=== PATIENT | male | born 1945 | race Caucasian/White ===

== ENCOUNTER 2019-07-25 12:24 | Emergency (ER) | payer OTHER ==
[~2019-07-25] VITALS: Ht 182.9 cm; Wt 63.5 kg
[2019-07-25 12:24] VITALS: BP_SYST 150
[2019-07-25] MEDS ORDERED: IPRATROPIUM/ALBUTEROL SULFATE 3 ML AMPUL.NEB (DUONEB) INH ONE ×2 (12:45→13:30)
[2019-07-25] MEDS ORDERED: NACL 0.9% 1,000 ML IV ONE (12:45)
[2019-07-25] MEDS ORDERED: LISI10TA5 PO (13:10)
[2019-07-25] MEDS ORDERED: ACET-73 PO (13:10)
[2019-07-25] MEDS ORDERED: NITSL SL (13:10)
[2019-07-25] MEDS ORDERED: CALC-823 PO (13:10)
[2019-07-25] MEDS ORDERED: LOPE-178 PO (13:10)
[2019-07-25] MEDS ORDERED: VITD2000 PO (13:10)
[2019-07-25] MEDS ORDERED: FERROUS SULF PO (13:10)
[2019-07-25] MEDS ORDERED: CYAN100010 PO (13:10)
[2019-07-25] MEDS ORDERED: RIVA20TA PO (13:10)
[2019-07-25] MEDS ORDERED: ASPI-1153 PO (13:10)
[2019-07-25] MEDS ORDERED: FLUO-119 PO (13:10)
[2019-07-25] MEDS ORDERED: ROSU10TA2 PO (13:10)
[2019-07-25] MEDS ORDERED: DONE10TA44 PO (13:10)
[2019-07-25] MEDS ORDERED: MULT-1164 PO (13:10)
[2019-07-25 13:12] LABS: BASOPHILS % (AUTO) 0.7 % (0.0-2.0); EOSINOPHILS # (AUTO) 0.1 K/uL (0.0-0.4); EOSINOPHILS % (AUTO) 1.9 % (0.0-4.0); HEMATOCRIT 25.3 % (36-54); HEMOGLOBIN 8.3 g/dL (14.0-18.0); LYMPHOCYTES # (AUTO) 0.3 K/uL (1.0-5.5); LYMPHOCYTES % (AUTO) 6.4 % (20.5-51.5); MEAN CORPUSCULAR HEMOGLOBIN 28 pg (27-31); MEAN CORPUSCULAR HGB CONC 33 % (32-36); MEAN CORPUSCULAR VOLUME 85 fL (79.0-98.0); MONOCYTES # (AUTO) 0.3 K/uL (0.0-1.0); MONOCYTES % (AUTO) 6.7 % (1.7-9.3); NEUTROPHILS # (AUTO) 3.8 K/uL (1.8-7.7); NEUTROPHILS % (AUTO) 84.3 % (40.0-70.0); PLATELET COUNT (AUTO) 231 K/uL (130-430); RED BLOOD CELL COUNT(AUTO) 2.97 MIL/uL (4.2-6.2); WHITE BLOOD COUNT (AUTO) 4.5 K/uL (4.8-10.8)
[2019-07-25 13:13] LABS: ANION GAP 8 (5-15); CALCIUM 8.9 mg/dL (8.4-11.0); CHLORIDE 100 mmol/L (98-107); CREATININE 0.78 mg/dL (0.55-1.30); GLUCOSE 91 mg/dL (70-99); POTASSIUM 4.4 mmol/L (3.5-5.1); SODIUM SERUM 135 mmol/L (136-145); UREA NITROGEN, BLOOD 16 mg/dL (8-21)
[2019-07-25 13:28] LABS: ALANINE AMINOTRANSFERASE 79 U/L (12-78); ALBUMIN 3.5 g/dL (3.4-4.8); ASPARTATE AMINOTRANSFERASE 122 U/L (10-37); TOTAL BILIRUBIN 0.4 mg/dL (0.0-1.0)
[2019-07-25 13:48] LABS: BILIRUBIN,URINE NEGATIVE (NEGATIVE); BLOOD, URINE NEGATIVE (NEGATIVE); CLARITY/URINE CLEAR (CLEAR); COLOR,URINE YELLOW (YELLOW); GLUCOSE,URINE NEGATIVE (NEGATIVE); KETONES,URINE 1+ (NEGATIVE); LEUKOCYTE ESTERASE ,URINE NEGATIVE (NEGATIVE); NITRITE, URINE NEGATIVE (NEGATIVE); PH,URINE 5.5 (5.0-8.0); PROTEIN URINE 1+ (NEGATIVE)
[2019-07-25 13:54] LABS: BACTERIA,URINE FEW /HPF (None Seen); RBC,URINE 0-3 /HPF (0-3); WBC,URINE 0-3 /HPF (0-3)
[2019-07-25 15:45] VITALS: BP_SYST 138
== END 2019-07-25 15:45 | disposition home or self-care (01) ==
LOC: SED 12:24
DX: R05 Cough (principal); D64.9 Anemia, unspecified; E78.00 Pure hypercholesterolemia, unspecified; I48.91 Unspecified atrial fibrillation; F32.9 Major depressive disorder, single episode, unspecified; F03.90 Unspecified dementia, unspecified severity, without behavioral disturbance, psychotic disturbance, mood disturbance, and anxiety; I10 Essential (primary) hypertension; Z86.79 Personal history of other diseases of the circulatory system; Z79.82 Long term (current) use of aspirin; Z79.899 Other long term (current) drug therapy
CPT/HCPCS: 36415; 71045; 80053; 81000; 83605; 83880; 85025; 87040; 87070; 87086; 87205; 93005; 94640; 99284; J7620

== ENCOUNTER 2019-08-16 14:16 | Inpatient (IN) | payer OTHER ==
[~2019-08-16] VITALS: Ht 170.2 cm; Wt 54.0 kg
[2019-08-16 14:16] VITALS: BP_SYST 168
[~2019-08-16 14:16] MED LIST: ACET-73 PO; ASPI-1153 PO; CALC-823 PO; CYAN100010 PO; DONE10TA44 PO; FERROUS SULF PO; FLUO-119 PO; LISI10TA5 PO; LOPE-178 PO; MULT-1164 PO; NITSL SL; RIVA20TA PO; ROSU10TA2 PO; VITD2000 PO
[2019-08-16 14:49] LABS: BASOPHILS % (AUTO) 0.6 % (0.0-2.0); EOSINOPHILS # (AUTO) 0.2 K/uL (0.0-0.4); EOSINOPHILS % (AUTO) 3.6 % (0.0-4.0); HEMATOCRIT 29.2 % (36-54); HEMOGLOBIN 9.4 g/dL (14.0-18.0); LYMPHOCYTES # (AUTO) 0.7 K/uL (1.0-5.5); LYMPHOCYTES % (AUTO) 12.6 % (20.5-51.5); MEAN CORPUSCULAR HEMOGLOBIN 27 pg (27-31); MEAN CORPUSCULAR HGB CONC 32 % (32-36); MEAN CORPUSCULAR VOLUME 83 fL (79.0-98.0); MONOCYTES # (AUTO) 0.4 K/uL (0.0-1.0); MONOCYTES % (AUTO) 6.5 % (1.7-9.3); NEUTROPHILS # (AUTO) 4.3 K/uL (1.8-7.7); NEUTROPHILS % (AUTO) 76.7 % (40.0-70.0); PLATELET COUNT (AUTO) 252 K/uL (130-430); RED BLOOD CELL COUNT(AUTO) 3.51 MIL/uL (4.2-6.2); RED CELL DISTRIBUTION WIDTH 16.3 % (9.0-15.0); WHITE BLOOD COUNT (AUTO) 5.6 K/uL (4.8-10.8)
[2019-08-16] MEDS ORDERED: VANCOMYCIN HCL 1,000 MG in NS 250 ML IV ONE (15:00)
[2019-08-16] MEDS ORDERED: MEROPENEM 500 MG IVPB PREMIX 50 ML IV ONE (15:00)
[2019-08-16 15:07] LABS: ANION GAP 3 (5-15); CALCIUM 8.4 mg/dL (8.4-11.0); CHLORIDE 105 mmol/L (98-107); CREATININE 0.68 mg/dL (0.55-1.30); GLUCOSE 91 mg/dL (70-99); SODIUM SERUM 138 mmol/L (136-145); UREA NITROGEN, BLOOD 22 mg/dL (8-21)
[2019-08-16 15:12] LABS: ALANINE AMINOTRANSFERASE 65 U/L (12-78); ALBUMIN 3.4 g/dL (3.4-4.8); ASPARTATE AMINOTRANSFERASE 65 U/L (10-37); TOTAL BILIRUBIN 0.5 mg/dL (0.0-1.0)
[2019-08-16] MEDS ORDERED: VANCOMYCIN HCL 1000 MG/VIAL IV ONE (15:34)
[2019-08-16 15:49] LABS: BILIRUBIN,URINE NEGATIVE (NEGATIVE); BLOOD, URINE NEGATIVE (NEGATIVE); CLARITY/URINE CLEAR (CLEAR); COLOR,URINE YELLOW (YELLOW); GLUCOSE,URINE NEGATIVE (NEGATIVE); KETONES,URINE TRACE (NEGATIVE); LEUKOCYTE ESTERASE ,URINE NEGATIVE (NEGATIVE); NITRITE, URINE NEGATIVE (NEGATIVE); PROTEIN URINE TRACE (NEGATIVE)
[2019-08-16] MEDS ORDERED: BENZ-16 PO (15:50)
[2019-08-16] MEDS ORDERED: ONDANSETRON HCL 4 MG/2 ML VIAL IVP PRN (16:00)
[2019-08-16] MEDS ORDERED: cefTRIAXone 1 GM IVPB PREMIX 50 ML IV ONE ×2 (16:00→18:10)
[2019-08-16 17:33] VITALS: BP_SYST 178
[2019-08-16] MEDS ORDERED: NITROGLYCERIN 0.4 MG TAB.SUBL SL PRN (18:30)
[2019-08-16] MEDS ORDERED: ACETAMINOPHEN 500 MG TABLET PO PRN (18:30)
[2019-08-16] MEDS ORDERED: LOPERAMIDE HCL 2 MG PO PRN (18:30)
[2019-08-16] MEDS ORDERED: LOPERAMIDE HCL 2 MG CAPSULE PO PRN (18:45)
[2019-08-16] MEDS ORDERED: ACETAMINOPHEN 325 MG TABLET PO SCH (19:00)
[2019-08-16 20:00] VITALS: BP_SYST 145
[2019-08-16] MEDS: BENZONATATE 100 MG CAPSULE (TESSALON) PO SCH (20:59)
[2019-08-16] MEDS: ENALAPRILAT DIHYDRATE 1.25 MG/ML VIAL IVP PRN (23:59)
[2019-08-17 00:16] VITALS: BP_SYST 182
[2019-08-17] MEDS: ENALAPRILAT DIHYDRATE 1.25 MG/ML VIAL IVP PRN (06:24)
[2019-08-17 07:23] LABS: ANION GAP 5 (5-15); CALCIUM 8.6 mg/dL (8.4-11.0); CHLORIDE 104 mmol/L (98-107); CREATININE 0.73 mg/dL (0.55-1.30); GLUCOSE 86 mg/dL (70-99); SODIUM SERUM 140 mmol/L (136-145); UREA NITROGEN, BLOOD 20 mg/dL (8-21)
[2019-08-17 08:08] VITALS: BP_SYST 157
[2019-08-17] MEDS ORDERED: AZITHROMYCIN 500 MG in NS 250 ML IV SCH (09:00)
[2019-08-17] MEDS ORDERED: FERROUS SULF PO SCH (09:00)
[2019-08-17] MEDS: ATORVASTATIN 20 MG TABLET PO SCH (09:59)
[2019-08-17] MEDS: CALCIUM CARBONATE/VITAMIN D3 1 TAB TABLET PO SCH (09:59)
[2019-08-17] MEDS: CYANOCOBALAMIN 1000 mCg TABLET PO SCH (10:00)
[2019-08-17] MEDS: BENZONATATE 100 MG CAPSULE (TESSALON) PO SCH ×3 (10:00→20:52)
[2019-08-17] MEDS: MULTIVITS,CA,MINERALS/IRON/FA 1 TABLET PO SCH (10:00)
[2019-08-17] MEDS: DONEPEZIL HCL 5 MG TABLET (ARICEPT) PO SCH (10:00)
[2019-08-17] MEDS: FERROUS SULFATE 325 MG TABLET.DR PO SCH (10:00)
[2019-08-17] MEDS: FLUoxetine HCL 20 MG CAPSULE (PROzac) PO SCH (10:00)
[2019-08-17] MEDS: ASPIRIN 81 MG TABLET(ECOTRIN) PO SCH (10:00)
[2019-08-17] MEDS: RIVAROXABAN 10 MG TABLET PO SCH (10:01)
[2019-08-17] MEDS: CHOLECALCIFEROL (VITAMIN D3) 2,000 UNIT TABLET PO SCH (10:01)
[2019-08-17] MEDS: LISINOPRIL 10 MG TABLET (PRINIVIL) PO SCH (10:01)
[2019-08-17 11:30] VITALS: BP_SYST 176
[2019-08-17] MEDS ORDERED: IPRATROPIUM BROM 0.5 MG/2.5 ML VIAL.NEB (ATROVENT) INH ONE (11:30)
[2019-08-17] MEDS ORDERED: PIPERACILLIN/TAZO 3.375/DEX-IS 50 ML IV ONE (11:30)
[2019-08-17] MEDS ORDERED: ALBUTEROL SULFATE 0.083% 2.5 MG/3 ML VIAL.NEB INH ONE (11:30)
[2019-08-17] MEDS ORDERED: ALBUTEROL SULFATE 0.083% 2.5 MG/3 ML VIAL.NEB INH PRN (11:30)
[2019-08-17] MEDS ORDERED: IPRATROPIUM BROM 0.5 MG/2.5 ML VIAL.NEB (ATROVENT) INH PRN (11:30)
[2019-08-17 12:00] VITALS: BP_SYST 176
[2019-08-17] MEDS: ACETYLCYSTEINE 10% 4 ML VIAL (RT) INH SCH ×2 (15:43→19:45)
[2019-08-17] MEDS: IPRATROPIUM BROM 0.5 MG/2.5 ML VIAL.NEB (ATROVENT) INH SCH ×3 (15:43→23:00)
[2019-08-17] MEDS: ALBUTEROL SULFATE 0.083% 2.5 MG/3 ML VIAL.NEB INH SCH ×3 (15:43→23:00)
[2019-08-17 16:00] VITALS: BP_SYST 159
[2019-08-17] MEDS: PIPERACILLIN/TAZO 3.375/DEX-IS 50 ML IV SCH ×2 (17:31→23:55)
[2019-08-17 20:00] VITALS: BP_SYST 156
[2019-08-18 01:10] VITALS: BP_SYST 134
[2019-08-18] MEDS: PIPERACILLIN/TAZO 3.375/DEX-IS 50 ML IV SCH ×3 (05:59→18:54)
[2019-08-18] MEDS: ALBUTEROL SULFATE 0.083% 2.5 MG/3 ML VIAL.NEB INH SCH ×4 (07:07→19:53)
[2019-08-18] MEDS: IPRATROPIUM BROM 0.5 MG/2.5 ML VIAL.NEB (ATROVENT) INH SCH ×4 (07:07→19:53)
[2019-08-18] MEDS: ACETYLCYSTEINE 10% 4 ML VIAL (RT) INH SCH ×4 (07:07→19:54)
[2019-08-18 08:01] VITALS: BP_SYST 164
[2019-08-18] MEDS: ASPIRIN 81 MG TABLET(ECOTRIN) PO SCH (08:25)
[2019-08-18] MEDS: ENALAPRILAT DIHYDRATE 1.25 MG/ML VIAL IVP PRN (08:25)
[2019-08-18] MEDS: LISINOPRIL 10 MG TABLET (PRINIVIL) PO SCH (08:26)
[2019-08-18] MEDS: ATORVASTATIN 20 MG TABLET PO SCH (08:26)
[2019-08-18] MEDS: BENZONATATE 100 MG CAPSULE (TESSALON) PO SCH ×3 (08:26→21:00)
[2019-08-18] MEDS: CALCIUM CARBONATE/VITAMIN D3 1 TAB TABLET PO SCH (08:26)
[2019-08-18] MEDS: DONEPEZIL HCL 5 MG TABLET (ARICEPT) PO SCH (08:26)
[2019-08-18] MEDS: CYANOCOBALAMIN 1000 mCg TABLET PO SCH (08:26)
[2019-08-18] MEDS: FERROUS SULFATE 325 MG TABLET.DR PO SCH (08:26)
[2019-08-18] MEDS: MULTIVITS,CA,MINERALS/IRON/FA 1 TABLET PO SCH (08:26)
[2019-08-18] MEDS: CHOLECALCIFEROL (VITAMIN D3) 2,000 UNIT TABLET PO SCH (08:26)
[2019-08-18] MEDS: FLUoxetine HCL 20 MG CAPSULE (PROzac) PO SCH (08:26)
[2019-08-18] MEDS: RIVAROXABAN 10 MG TABLET PO SCH (08:27)
[2019-08-18] MEDS: AZITHROMYCIN 500 MG in NS 250 ML IV SCH (09:19)
[2019-08-18] MEDS ORDERED: methylPREDNISolone SOD SUCC/PF 62.5 MG/ML VIAL IVP ONE (11:30)
[2019-08-18 12:20] VITALS: BP_SYST 152
[2019-08-18] MEDS ORDERED: BARIUM SULFATE 135 ML SUSP.RECON (E-Z-HD) PO ONE (13:42)
[2019-08-18 16:50] VITALS: BP_SYST 141
[2019-08-18 20:00] VITALS: BP_SYST 112
[2019-08-19] VITALS: BP_SYST 160
[2019-08-19] MEDS: PIPERACILLIN/TAZO 3.375/DEX-IS 50 ML IV SCH ×4 (00:19→17:18)
[2019-08-19 06:12] LABS: ANION GAP 1 (5-15); CALCIUM 8.4 mg/dL (8.4-11.0); CHLORIDE 105 mmol/L (98-107); CREATININE 0.69 mg/dL (0.55-1.30); GLUCOSE 119 mg/dL (70-99); POTASSIUM 4.1 mmol/L (3.5-5.1); SODIUM SERUM 139 mmol/L (136-145); UREA NITROGEN, BLOOD 23 mg/dL (8-21)
[2019-08-19] MEDS: IPRATROPIUM BROM 0.5 MG/2.5 ML VIAL.NEB (ATROVENT) INH SCH ×5 (07:30→23:00)
[2019-08-19] MEDS: ALBUTEROL SULFATE 0.083% 2.5 MG/3 ML VIAL.NEB INH SCH ×5 (07:30→23:00)
[2019-08-19] MEDS: ACETYLCYSTEINE 10% 4 ML VIAL (RT) INH SCH ×4 (07:31→19:25)
[2019-08-19] MEDS: AZITHROMYCIN 500 MG in NS 250 ML IV SCH (08:42)
[2019-08-19] MEDS: LISINOPRIL 10 MG TABLET (PRINIVIL) PO SCH (08:47)
[2019-08-19] MEDS: ASPIRIN 81 MG TABLET(ECOTRIN) PO SCH (08:47)
[2019-08-19] MEDS: FERROUS SULFATE 325 MG TABLET.DR PO SCH (08:47)
[2019-08-19] MEDS: CALCIUM CARBONATE/VITAMIN D3 1 TAB TABLET PO SCH (08:47)
[2019-08-19] MEDS: FLUoxetine HCL 20 MG CAPSULE (PROzac) PO SCH (08:47)
[2019-08-19] MEDS: ATORVASTATIN 20 MG TABLET PO SCH (08:47)
[2019-08-19] MEDS: DONEPEZIL HCL 5 MG TABLET (ARICEPT) PO SCH (08:47)
[2019-08-19] MEDS: RIVAROXABAN 10 MG TABLET PO SCH (08:48)
[2019-08-19] MEDS: CYANOCOBALAMIN 1000 mCg TABLET PO SCH (08:48)
[2019-08-19] MEDS: CHOLECALCIFEROL (VITAMIN D3) 2,000 UNIT TABLET PO SCH (08:48)
[2019-08-19] MEDS: MULTIVITS,CA,MINERALS/IRON/FA 1 TABLET PO SCH (08:48)
[2019-08-19] MEDS: BENZONATATE 100 MG CAPSULE (TESSALON) PO SCH ×3 (08:48→21:00)
[2019-08-19] MEDS: ENALAPRILAT DIHYDRATE 1.25 MG/ML VIAL IVP PRN (08:53)
[2019-08-19 08:59] VITALS: BP_SYST 172
[2019-08-19 11:20] VITALS: BP_SYST 157
[2019-08-19] MEDS: 0.45% NACL 1,000 ML IV SCH (12:25)
[2019-08-19] MEDS ORDERED: GADOPENTETATE DIMEGLUMINE 15 ML VIAL IV ONE (13:53)
[2019-08-19 15:35] VITALS: BP_SYST 148
[2019-08-19 20:00] VITALS: BP_SYST 151
[2019-08-20] VITALS (7 sets, daily range): BP systolic 117–176
[2019-08-20] MEDS: ENALAPRILAT DIHYDRATE 1.25 MG/ML VIAL IVP PRN ×4 (00:01→23:53)
[2019-08-20] MEDS: PIPERACILLIN/TAZO 3.375/DEX-IS 50 ML IV SCH ×5 (00:51→23:35)
[2019-08-20] MEDS: IPRATROPIUM BROM 0.5 MG/2.5 ML VIAL.NEB (ATROVENT) INH SCH ×6 (03:00→23:00)
[2019-08-20] MEDS: ALBUTEROL SULFATE 0.083% 2.5 MG/3 ML VIAL.NEB INH SCH ×6 (03:00→23:00)
[2019-08-20] MEDS: 0.45% NACL 1,000 ML IV SCH (06:20)
[2019-08-20] MEDS: ACETYLCYSTEINE 10% 4 ML VIAL (RT) INH SCH ×4 (07:19→20:37)
[2019-08-20] MEDS: AZITHROMYCIN 500 MG in NS 250 ML IV SCH (08:10)
[2019-08-20] MEDS: BENZONATATE 100 MG CAPSULE (TESSALON) PO SCH ×3 (09:00→21:00)
[2019-08-20] MEDS: LISINOPRIL 10 MG TABLET (PRINIVIL) PO SCH (09:00)
[2019-08-20] MEDS: DONEPEZIL HCL 5 MG TABLET (ARICEPT) PO SCH (09:00)
[2019-08-20] MEDS: ASPIRIN 81 MG TABLET(ECOTRIN) PO SCH (09:00)
[2019-08-20] MEDS: CALCIUM CARBONATE/VITAMIN D3 1 TAB TABLET PO SCH (09:00)
[2019-08-20] MEDS: FERROUS SULFATE 325 MG TABLET.DR PO SCH (09:00)
[2019-08-20] MEDS: RIVAROXABAN 10 MG TABLET PO SCH (09:00)
[2019-08-20] MEDS: MULTIVITS,CA,MINERALS/IRON/FA 1 TABLET PO SCH (09:00)
[2019-08-20] MEDS: CHOLECALCIFEROL (VITAMIN D3) 2,000 UNIT TABLET PO SCH (09:00)
[2019-08-20] MEDS: FLUoxetine HCL 20 MG CAPSULE (PROzac) PO SCH (09:00)
[2019-08-20] MEDS: CYANOCOBALAMIN 1000 mCg TABLET PO SCH (09:00)
[2019-08-20] MEDS: ATORVASTATIN 20 MG TABLET PO SCH (09:00)
[2019-08-21 00:01] VITALS: BP_SYST 172
[2019-08-21] MEDS: ALBUTEROL SULFATE 0.083% 2.5 MG/3 ML VIAL.NEB INH SCH ×4 (03:00→15:21)
[2019-08-21] MEDS: IPRATROPIUM BROM 0.5 MG/2.5 ML VIAL.NEB (ATROVENT) INH SCH ×4 (03:00→15:21)
[2019-08-21] MEDS: 0.45% NACL 1,000 ML IV SCH (03:00)
[2019-08-21] MEDS: PIPERACILLIN/TAZO 3.375/DEX-IS 50 ML IV SCH ×3 (06:18→17:02)
[2019-08-21] MEDS: ACETYLCYSTEINE 10% 4 ML VIAL (RT) INH SCH ×3 (07:42→15:22)
[2019-08-21 08:01] VITALS: BP_SYST 165
[2019-08-21] MEDS: ENALAPRILAT DIHYDRATE 1.25 MG/ML VIAL IVP PRN ×2 (08:06→14:24)
[2019-08-21] MEDS: AZITHROMYCIN 500 MG in NS 250 ML IV SCH (08:06)
[2019-08-21] MEDS: FLUoxetine HCL 20 MG CAPSULE (PROzac) PO SCH (09:00)
[2019-08-21] MEDS: CYANOCOBALAMIN 1000 mCg TABLET PO SCH (09:00)
[2019-08-21] MEDS: BENZONATATE 100 MG CAPSULE (TESSALON) PO SCH ×2 (09:00→15:00)
[2019-08-21] MEDS: RIVAROXABAN 10 MG TABLET PO SCH (09:00)
[2019-08-21] MEDS: LISINOPRIL 10 MG TABLET (PRINIVIL) PO SCH (09:00)
[2019-08-21] MEDS: CHOLECALCIFEROL (VITAMIN D3) 2,000 UNIT TABLET PO SCH (09:00)
[2019-08-21] MEDS: MULTIVITS,CA,MINERALS/IRON/FA 1 TABLET PO SCH (09:00)
[2019-08-21] MEDS: ATORVASTATIN 20 MG TABLET PO SCH (09:00)
[2019-08-21] MEDS: ASPIRIN 81 MG TABLET(ECOTRIN) PO SCH (09:00)
[2019-08-21] MEDS: FERROUS SULFATE 325 MG TABLET.DR PO SCH (09:00)
[2019-08-21] MEDS: DONEPEZIL HCL 5 MG TABLET (ARICEPT) PO SCH (09:00)
[2019-08-21] MEDS: CALCIUM CARBONATE/VITAMIN D3 1 TAB TABLET PO SCH (09:00)
[2019-08-21 15:26] VITALS: BP_SYST 172
[2019-08-21 15:58] VITALS: BP_SYST 147
[2019-08-21] MEDS ORDERED: hydrALAZINE HCL 20 MG/ML VIAL IVP ONE (16:15)
[2019-08-21 17:04] VITALS: BP_SYST 147
== END 2019-08-21 18:20 | disposition hospice, home (50) | DRG 177 ==
LOC: SED 14:16 → STU 15:56
PROVIDERS: ADMIT Internal Medicine Hospice and Palliative Medicine; ATTEND Internal Medicine Hospice and Palliative Medicine
DX: J69.0 Pneumonitis due to inhalation of food and vomit (principal); I63.9 Cerebral infarction, unspecified; J96.90 Respiratory failure, unspecified, unspecified whether with hypoxia or hypercapnia; C79.9 Secondary malignant neoplasm of unspecified site; I48.20 Chronic atrial fibrillation, unspecified; E46 Unspecified protein-calorie malnutrition; Z68.1 Body mass index [BMI] 19.9 or less, adult; J20.9 Acute bronchitis, unspecified; C43.9 Malignant melanoma of skin, unspecified; D64.9 Anemia, unspecified; E78.5 Hyperlipidemia, unspecified; I10 Essential (primary) hypertension; F03.90 Unspecified dementia, unspecified severity, without behavioral disturbance, psychotic disturbance, mood disturbance, and anxiety; E78.00 Pure hypercholesterolemia, unspecified; F32.9 Major depressive disorder, single episode, unspecified; I25.10 Atherosclerotic heart disease of native coronary artery without angina pectoris; R13.12 Dysphagia, oropharyngeal phase; Z85.841 Personal history of malignant neoplasm of brain; Z86.73 Personal history of transient ischemic attack (TIA), and cerebral infarction without residual deficits; Z79.01 Long term (current) use of anticoagulants; Z95.1 Presence of aortocoronary bypass graft; Z98.84 Bariatric surgery status; Z79.899 Other long term (current) drug therapy; Z79.82 Long term (current) use of aspirin
CPT/HCPCS: 36415; 36600; 70450-TC; 70553; 71045; 74230; 80048; 80053; 81003; 82803-TC; 83605; 83880; 85025; 87040-TC; 92507-GN; 92523; 92526-GN; 92610-GN; 92611-GN; 93005; 93306; 94640; 94760; 96365; 96367; 99285; A9579; G0378; J0360; J0456; J0696; J2185; J2543; J2930; J3370; J7050; J7608; J7613